=== PATIENT | male | born 1950 | race Caucasian/White ===

== ENCOUNTER → 2016-10-12 | Outpatient (CLI) | payer OTHER ==
[~2016-10-12] MED LIST: HYDR-5688 PO; MISCTAB78 PO; MULT-506 PO
[2016-10-12 12:31] LABS: BASO % 0.7 %; BASO ABS # 0.04 K/uL (0-0.2); COMPLETE YES; EOS % 2.2 %; IG% 0.2 %; LYMPH % 27.3 %; LYMPH ABS # 1.47 K/uL (1.2-3.4); MEAN CELL VOLUME 86.8 fL (80-100); MEAN CORPUSCULAR HEMOGLOBIN 28.5 pg (25-34); MEAN CORPUSCULAR HGB CONC 32.8 g/dl (32-36); MEAN PLATELET VOLUME 10.3 fL (7.4-10.4); NEUT % 58.6 %; PLATELET COUNT 219 K/uL (130-400); WHITE BLOOD COUNT 5.38 K/uL (4.8-10.8)
[2016-10-12 13:34] LABS: ALT/SGPT 21 U/L (12-78); BLOOD UREA NITROGEN 25 mg/dl (7-18); BUN/CREATININE RATIO 28.3 (10-20); CALCIUM 8.9 mg/dl (8.5-10.1); CARBON DIOXIDE 26 mmol/L (21-32); CHLORIDE 107 mmol/L (98-107); CHOLESTEROL 188 mg/dl (0-200); CREATININE 0.89 mg/dl (0.60-1.40); GLUCOSE 104 mg/dl (70-99); POTASSIUM 4.1 mmol/L (3.5-5.1); SODIUM 139 mmol/L (136-145); TRIGLYCERIDES 327 mg/dl (0-150); VERY LOW DENSITY LIPOPROT CALC 65 mg/dl
[2016-10-12 13:39] LABS: ALB/GLOB RATIO 1.3 (0.9-2); ALKALINE PHOSPHATASE 46 U/L (45-117); AST/SGOT 21 U/L (15-37); CHOLESTEROL/HDL RATIO 5.4; HDL CHOLESTEROL 35 mg/dl; LDL CHOLESTEROL CALCULATED 88 mg/dl
--- NOTE | 2016-10-20 10:44 | CODING QUERY MEDICAL NECESSITY ---
SUPPORTING DIAGNOSIS NEEDED Dr. Tobar, A supporting diagnosis is required for the test/procedure performed on this patient in order for us to be reimbursed by the patient's insurance. Please provide a supporting diagnosis for the following test/procedure listed below next to the test name along with your signature. *If there is no additional diagnosis for this patient that would support the following test/procedure please document that below next to the test/procedure. Test(s)/Procedure(s) that require a supporting diagnosis: * [id number] PSA DIAGNOSIS: DATE OF SERVICE: 10/12/16 Provider Signature: Date: Thank you Giorgi Nath [facility] Information Management Once completed, please kindly fax back to [phone] For questions please call [phone]
== END | disposition home or self-care (01) ==
LOC: C.LABPVFM 07:59
PROVIDERS: ATTEND Family Medicine
DX: Z00.00 Encounter for general adult medical examination without abnormal findings (principal); Z12.5 Encounter for screening for malignant neoplasm of prostate

== ENCOUNTER 2016-10-22 15:15 | Emergency (ER) | payer OTHER ==
[~2016-10-22] VITALS: Ht 182.9 cm; Wt 84.0 kg
[~2016-10-22 15:15] MED LIST changes: -HYDR-5688 PO
[2016-10-22 15:20] VITALS: TEMP 36.5; Ht 182.9 cm; Wt 84.0 kg
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
--- NOTE | 2016-10-22 16:25 | EMERGENCY ROOM VISIT NOTE ---
ED Visit Note First contact with patient: 15:25 I have personally seen and evaluated the patient with the physician assistant associate professor. I agree with the diagnostic/management decisions and have personally been involved in these decisions and agree with the diagnosis.
[2016-10-22] MEDS ORDERED: HYDR-5688 PO (16:29)
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
[2016-10-22 17:00] VITALS: BP 133/75; PULSE 62; O2SAT 98
== END 2016-10-22 17:00 | disposition home or self-care (01) ==
LOC: C.EDB 15:16 → C.EDD 17:00
DX: M25.511 Pain in right shoulder (principal); V18.0XXA Pedal cycle driver injured in noncollision transport accident in nontraffic accident, initial encounter; Z88.5 Allergy status to narcotic agent